=== PATIENT | male | born 1995 | race Caucasian/White ===

== ENCOUNTER 2021-11-11 11:23 | Emergency (ER) | payer OTHER, SELFPAY ==
[2021-11-11 11:29] VITALS: BP 135/95; PULSE 86; RESP 18; TEMP 36.1; O2SAT 97
[2021-11-11 12:14] LABS: Basophils Absolute Auto 0.1 K/mm3 (0.0-0.1); Basophils Percent Auto 0.7 % (0.2-1.2); Eosinophils Absolute Auto 0.3 K/mm3 (0-0.3); Hematocrit 52.3 % (42.0-52.0); Hemoglobin 18.4 g/dL (14.0-18.0); Immature Granulocyte Absolute 0.08 K/mm3 (0.00-0.031); Immature Granulocyte Percent A 0.8 % (0-0.5); Lymphocytes Absolute Auto 3.08 K/mm3 (0.9-3.2); Lymphocytes Percent Auto 32.2 % (18.3-44.2); Mean Corpuscular HGB Conc 35.2 g/dl (32-36); Mean Corpuscular Hemoglobin 30.3 pg (26-34); Mean Platelet Volume 10.9 fl (7.4-10.4); Monocytes Absolute Auto 0.7 K/mm3 (0.1-0.6); Monocytes Percent Auto 7.7 % (2.6-8.5); Neutrophils Absolute Auto 5.3 K/mm3 (1.3-6.7); Neutrophils Percent Auto 55.6 % (45.5-73.1); Platelet Count Result 217 k/mm3 (150-375); Red Blood Count 6.08 M/mm3 (4.6-6.20); Red Cell Distribution Width 12.5 % (11.5-14.5); White Blood Count 9.6 K/mm3 (4.5-10.0)
[2021-11-11 12:15] LABS: Appearance Urine Clear (Clear); Bilirubin Urine Negative (Negative); Blood Urine Trace-lysed (Negative); Color Urine Yellow (Yellow); Glucose Urine UA Negative (Negative); Ketones Urine Negative (Negative); Leukocyte Esterase Ur Negative LEU/UL (Negative); Nitrate Urine Negative (Negative); Protein Urine Negative (Negative); Urobilinogen Urine 0.2 mg/dL (<2.0)
[2021-11-11 12:18] LABS: RBC Urine 0-2 /hpf (0-2); WBC Urine 0-3 /hpf
[2021-11-11 12:19] LABS: Add Urine Microscopic? YES
[2021-11-11 12:25] LABS: Alanine Aminotransferase 127 U/L (4-50); Alkaline Phosphatase 72 U/L (38-126); Anion Gap 11 mmol/L (8-16); Aspartate Amino Transferase 102 U/L (17-59); Bilirubin,Total 1.9 mg/dL (0.2-1.3); Blood Urea Nitrogen 9 mg/dL (9-20); Calcium 9.4 mg/dL (8.4-10.2); Carbon Dioxide 23 mmol/L (22-30); Chloride 103 mmol/L (98-107); Estimated CRCL calculation 118 ml/min; Estimated Glomerular Filt Rate > 60; Ethanol < 10 mg/dL (<10); Glucose 111 mg/dL (65-110); Potassium 3.8 mmol/L (3.4-5.0); Sodium 137 mmol/L (137-145)
[2021-11-11 12:28] LABS: Amphetamine Screen Urine Negative (Negative); Barbiturate Screen Urine Negative (Negative); Benzodiazepines Screen Urine Negative (Negative); Cannabinoid Screen Urine Positive (Negative); Cocaine Screen Urine Negative (Negative); Methadone Screen Urine Negative (Negative); Opiate Screen Urine Negative (Negative); Phencyclidine Screen Urine Negative (Negative)
[2021-11-11 12:50] LABS: SARS-CoV-2 RNA PCR Negative
--- NOTE | 2021-11-11 13:03 | PC.NURSE ---
Per Dr Castro states pt is medically clear at time.
--- NOTE | 2021-11-11 13:06 | PC.NURSE ---
called Crisis and spoke to Queta, will send someone to eval pt
--- NOTE | 2021-11-11 13:52 | PC.NURSE ---
Pt ambulated out of ER through EMS doors. Per sitter at bedside and mother at bedside - unable to keep him from leaving. Security notified and went to parking lot. Pt ambulated back in after 3 assist global security architect went to parking lot to re direct pt. refrigeration person and warehouse administrator notified of flight risk.
--- NOTE | 2021-11-11 15:38 | ED.PSYCH ---
HPI - Psych General Chief Complaint: Psychiatric Symptoms Stated Complaint: psych issues Time Seen by Provider: 11/11/21 12:08 Source: patient and family Mode of arrival: ambulatory Limitations: no limitations History of Present Illness HPI Narrative: 26-year-old with a history of depression, brought in by family with complaints of feeling depressed and having suicidal ideation for quite some time but no significant plan patient reports. Patient states that he is stressed out and unable to concentrate. Mom who is at the bedside states that he is supposed to be on a Abilify has not been taking since last 6 months. He denies any alcohol or drug abuse. complaint: suicidal ideation Onset (ago): week(s) Duration: constant Relieving factors: none Exacerbating factors: none Associated psychiatric symptoms: depression and suicidal ideation Treatments prior to arrival: none Related Data Home Medications Medication Instructions Recorded Confirmed aripiprazole [Abilify Maintena] 400 mg IM MONTHLY 11/11/21 11/11/21 Allergies Allergy/AdvReac Type Severity Reaction Status Date / Time No Known Allergies Allergy Verified 11/11/21 12:10 Review of Systems Review of Systems: All systems reviewed & are unremarkable except as noted in HPI and below Constitutional: Constitutional: Reports no additional constitutional complaints Eyes: Eyes: Reports no additional eye complaints ENT: Reports system reviewed and no additional complaints, except as documented Cardiovascular: Cardiovascular: Reports no additional cardiovascular complaints Respiratory: Respiratory: Reports no additional respiratory complaints Gastrointestinal: Gastrointestinal: Reports no additional gastrointestinal complaints Musculoskeletal: Musculoskeletal: Reports no additional musculoskeletal complaints Integumentary/Breasts: Skin/Breast: Reports system reviewed and no additional complaints, except as docu Neurologic: Reports system reviewed and no additional complaints, except as documented Psychiatric: Psychiatric: Reports as per HPI Endocrine: Endocrine: Reports no additional endocrine complaints Hematologic/Lymphatic: Hematologic/Lymphatic: Reports no additional hematologic/lymphatic complaints PMFSH Social History Social History Substance use type: does not use Exam Narrative: GENERAL: Well-appearing, well-nourished, and in no acute distress. HEAD: Normocephalic, atraumatic. EYES: PERRLA and EOMI. NECK: Supple. CHEST: Clear to auscultation. No respiratory distress. HEART: Regular rate and rhythm. No murmur heard. Normal peripheral pulses. ABDOMEN: Soft, nontender, nondistended, normal active bowel sounds. EXTREMITIES: Normal range of motion. No edema. SKIN: Warm, dry, no rash. NEURO: Flat affect and depressed mood Course Course Emergency Course: Patient was interviewed by behavioral health. He declined hospital admission he agreed for safety contract I recommended him to start taking his Abilify and follow-up with his psychiatrist. Vital Signs Vital signs: Vital Signs Temperature 36.1 C L 11/11/21 11:29 Pulse Rate 86 11/11/21 11:29 Respiratory Rate 18 11/11/21 11:29 Blood Pressure 135/95 H 11/11/21 11:29 Pulse Oximetry 97 11/11/21 11:29 Temperature 36.1 C L 11/11/21 11:29 Pulse Rate 86 11/11/21 11:29 Respiratory Rate 18 11/11/21 11:29 Blood Pressure 135/95 H 11/11/21 11:29 Pulse Oximetry 97 11/11/21 11:29 MDM - Psych Lab Data Result diagrams: 11/11/21 12:01 11/11/21 12:01 Labs: Lab Results 11/11/21 11/11/21 11/11/21 Range/Units 12:01 12:01 12:01 WBC 9.6 (4.5-10.0) K/mm3 RBC 6.08 (4.6-6.20) M/mm3 Hgb 18.4 H (14.0-18.0) g/dL Hct 52.3 H (42.0-52.0) % MCV 86.0 (80-100) fl MCH 30.3 (26-34) pg MCHC 35.2 (32-36) g/dl RDW 12.5 (11.5-14.5) % Plt Count 217 (150-375)
[2021-11-11 16:34] VITALS: BP 123/89; PULSE 84; RESP 15; O2SAT 99
== END 2021-11-11 16:35 | disposition home or self-care (01) ==
PROVIDERS: Emergency Medicine; Emergency Provider Family Medicine
DX: F34.1 Dysthymic disorder (principal); Z20.822 Contact with and (suspected) exposure to COVID-19
CPT/HCPCS: 36415; 80053; 80307; 81001; 84443; 85025; 99284; C9803; U0003; U0005